=== PATIENT | male | born 1985 | race Caucasian/White ===

== ENCOUNTER 2024-05-04 16:48 | Emergency (ER) | payer SELFPAY ==
[~2024-05-04] VITALS: Ht 167.6 cm; Wt 63.5 kg
[2024-05-04 16:58] VITALS: BP 123/63; PULSE 67; RESP 18; TEMP 99.3; O2SAT 98
[2024-05-04 17:10] VITALS: O2SAT 98
[2024-05-04 18:19] LABS: APPEARANCE,URINE CLEAR (CLEAR); BILIRUBIN,URINE NEGATIVE (NEGATIVE); BLOOD, URINE NEGATIVE (NEGATIVE); COLOR,URINE YELLOW (YELLOW); LEUKOCYTE ESTERASE ,URINE NEGATIVE (NEGATIVE); NITRITE, URINE NEGATIVE (NEGATIVE); PROTEIN,URINE NEGATIVE (NEGATIVE); UGLUCOSE NEGATIVE (NEGATIVE); UROBILINOGEN,URINE 0.2 EU/dL (0.2 - 1)
[2024-05-04] MEDS: IBUPROFEN 600 MG TAB PO ONE (19:36)
== END 2024-05-04 20:25 | disposition home or self-care (01) ==
LOC: MED 16:48
DX: N43.3 Hydrocele, unspecified (principal)
CPT/HCPCS: 76870; 81003; 87491; 99284; Q0092